=== PATIENT | female | born 1965 | race Caucasian/White ===

== ENCOUNTER 2018-05-08 13:11 | Emergency (ER) | payer BC ==
[2018-05-08] MEDS ORDERED: Tetan/Diph/Pertus SYR(Tdap)* 0.5 ML SYR(BOOSTRIX) use SYR IM ONE ×2 (13:27→14:43)
--- NOTE | 2018-05-08 13:51 | UC ---
Skin Complaint HPI - History of Current Complaint Time Seen by Provider: 05/08/18 13:51 Stated Complaint: TETANUS BOOSTER - Allergy/Home Medications Allergies/Adverse Reactions: Allergies Allergy/AdvReac Type Severity Reaction Status Date / Time No Known Allergies Allergy Verified 10/10/17 14:49 PMH/Surg Hx/FS Hx/Imm Hx - Surgical History Surgical History: Yes Surgery Procedure, Year, and Place: NASAL SEPTAL REPAIR - Social History Substance Use Type: None Discharge - Discharge Plan Referrals: Aaliyah Cruz MD [Primary Care Provider] -
--- NOTE | 2018-05-08 14:39 | UC ---
Skin Complaint HPI - HPI Summary HPI Summary: 52 yo female presents with RIGHT index finger injury on 05/05. She tells me that she accidentally cut her finger on a jose r metal jewelry box. She called her PCP today who told her that her last tetanus was in 2010 and to have this updated. Pt washed the wound and has kept it covered with a band-aid. No pain, fever, or chills. - History of Current Complaint Time Seen by Provider: 05/08/18 13:51 Stated Complaint: TETANUS BOOSTER Hx Obtained From: Patient Onset/Duration: Sudden Onset Onset Severity: Mild Current Severity: None Pain Intensity: 2 Pain Scale Used: 0-10 Numeric - Allergy/Home Medications Allergies/Adverse Reactions: Allergies Allergy/AdvReac Type Severity Reaction Status Date / Time No Known Allergies Allergy Verified 05/08/18 14:42 PMH/Surg Hx/FS Hx/Imm Hx - Additional Past Medical History Additional PMH: None - Surgical History Surgical History: Yes Surgery Procedure, Year, and Place: NASAL SEPTAL REPAIR - Family History Known Family History: Positive: None - Social History Occupation: Employed Full-time Lives: With Family Alcohol Use: Occasionally Substance Use Type: None Smoking Status (MU): Never Smoked Tobacco Review of Systems All Other Systems Reviewed And Are Negative: Yes Constitutional: Positive: Negative Skin: Positive: Other - Right index finger laceration Respiratory: Positive: Negative Cardiovascular: Positive: Negative Musculoskeletal: Positive: Negative Neurological: Positive: Negative Psychological: Positive: Negative Physical Exam - Summary Physical Exam Summary: GENERAL: NAD. WDWN. No pain distress. SKIN: RIGHT index finger: Pad with 7mm linear laceration. Healing well. No erythema, edema, drainage, or pain. NECK: Supple. Nontender. No lymphadenopathy. CHEST: No accessory muscle use. Breathing comfortably and in no distress. CV: Pulses intact. Cap refill <2seconds NEURO: Alert. PSYCH: Age appropriate behavior. Triage Information Reviewed: Yes Vital Signs: Vital Signs: Temp Pulse Resp BP Pulse Ox 98.2 F 47 16 133/79 100 05/08/18 14:39 05/08/18 14:39 05/08/18 14:39 05/08/18 14:39 05/08/18 14:39 Vital Signs Reviewed: Yes Course/Dx - Course Course Of Treatment: tdap updated today. Advised to keep wound covered with a band-aid until well healed. - Diagnoses Provider Diagnosis: Laceration of right index finger Discharge - Sign-Out/Discharge Documenting (check all that apply): Patient Departure All imaging exams completed and their final reports reviewed: No Studies - Discharge Plan Condition: Stable Disposition: HOME Patient Education Materials: Tdap and Td Vaccines for Adults (ED) Referrals: Aaliyah Cruz MD [Primary Care Provider] - Additional Instructions: If you develop a fever, shortness of breath, chest pain, new or worsening symptoms - please call your PCP or go to the ED. - Billing Disposition and Condition Condition: STABLE Disposition: Home
[2018-05-08 14:43] VITALS: BP 133/79
== END 2018-05-08 14:56 | disposition home or self-care (01) ==
LOC: UCEAST 13:11
DX: S61.210A Laceration without foreign body of right index finger without damage to nail, initial encounter (principal); W45.8XXA Other foreign body or object entering through skin, initial encounter; Y92.9 Unspecified place or not applicable
CPT/HCPCS: 90471; 90715; 99211; G0463